=== PATIENT | male | born 1940 | race African-American/Black ===

== ENCOUNTER → 2019-11-09 | Outpatient (CLI) | payer OTHER, BC ==
[~2019-11-09] MED LIST: ASPIRIN EC81 M1 PO; CADUET 10 MG-21 EACH PO; CELEBREX 200 M200 MG PO; LISINOPRIL20 MG PO; SERTRALINE HCL100 MG PO
== END ==
LOC: SJCVC 13:31
PROVIDERS: ATTEND Internal Medicine Cardiovascular Disease
DX: Z01.810 Encounter for preprocedural cardiovascular examination (principal); R94.31 Abnormal electrocardiogram [ECG] [EKG]; I49.8 Other specified cardiac arrhythmias; I44.0 Atrioventricular block, first degree; R00.1 Bradycardia, unspecified; I10 Essential (primary) hypertension; E78.00 Pure hypercholesterolemia, unspecified

== ENCOUNTER → 2019-11-10 | Outpatient (CLI) | payer OTHER, BC | LOC: SJCVCIMAG 10:11 | PROVIDERS: ATTEND Internal Medicine Cardiovascular Disease | DX: Z01.818 Encounter for other preprocedural examination (principal); I08.2 Rheumatic disorders of both aortic and tricuspid valves; I44.0 Atrioventricular block, first degree; I11.9 Hypertensive heart disease without heart failure; I49.3 Ventricular premature depolarization; I49.8 Other specified cardiac arrhythmias; E11.9 Type 2 diabetes mellitus without complications; E78.5 Hyperlipidemia, unspecified ==